=== PATIENT | male | born 1995 | race Caucasian/White ===

== ENCOUNTER 2019-07-29 13:40 | Emergency (ER) | payer SELFPAY ==
--- NOTE | 2019-07-29 15:03 | EDM.PDOC ---
ED HPI GENERAL MEDICAL PROBLEM - General Chief Complaint: Respiratory Problem Stated Complaint: COUGH/CHEST CONGESTION Time Seen by Provider: 07/29/19 15:03 Source of Information: Reports: Patient History Limitations: Reports: No Limitations - History of Present Illness INITIAL COMMENTS - FREE TEXT/NARRATIVE: HISTORY AND PHYSICAL: History of present illness: Patient is a 23-year-old male presents the ED with concern of cough x5 days. Patient states that he has a cough that is worse at night and states he has a burning sensation in his chest with coughing. He reports body aches and chills and subjective fevers. He states he has had some nonbloody diarrhea the past couple of days. He denies chest pain, shortness of breath, nausea, vomiting, abdominal pain. He denies significant past medical history. He is taking OTC medications without relief of symptoms. Review of systems: As per history of present illness and below otherwise all systems reviewed and negative. Past medical history: As per history of present illness and as reviewed below otherwise noncontributory. Surgical history: As per history of present illness and as reviewed below otherwise noncontributory. Social history: No reported history of drug or alcohol abuse. Family history: As per history of present illness and as reviewed below otherwise noncontributory. Physical exam: General: Patient sitting comfortably in no acute distress and nontoxic appearing HEENT: Atraumatic, normocephalic, pupils reactive, negative for conjunctival pallor or scleral icterus, mucous membranes moist, throat clear, neck supple, nontender, trachea midline. No meningeal signs. Lungs: Clear to auscultation, breath sounds equal bilaterally, chest nontender. Heart: S1S2, regular, negative for clicks, rubs, or overt murmur. Abdomen: Soft, nondistended, nontender. Negative for masses or hepatosplenomegaly. Negative for costovertebral tenderness. No rigidity, rebound , guarding. Pelvis: Stable nontender. Genitourinary: Deferred. Rectal: Deferred. Extremities: Atraumatic, negative for cords or calf pain. Neurovascular unremarkable. Neuro: Awake, alert, oriented. Cranial nerves II through XII unremarkable. Cerebellum unremarkable. Motor and sensory unremarkable throughout. Exam nonfocal. Notes: Diagnostics: Influenza Therapeutics: none Prescriptions: none Impression: Influenza B Plan: 1. Drink plenty of fluids and alternate tylenol and motrin as discussed. 2. Follow up with primary care provider 3. Return to ED as needed as discussed Definitive disposition and diagnosis as appropriate pending reevaluation and review of above. - Related Data Allergies Allergy/AdvReac Type Severity Reaction Status Date / Time No Known Allergies Allergy Verified 07/29/19 14:57 Home Meds: Home Meds . [No Known Home Meds] 07/29/19 [History] ED ROS GENERAL - Review of Systems Review Of Systems: Comprehensive ROS is negative, except as noted in HPI. ED EXAM, GENERAL - Physical Exam Exam: See Below (see dictation) Course - Vital Signs Last Recorded V/S: Last Vital Signs Temp 98.5 F 07/29/19 14:57 Pulse 99 07/29/19 14:57 Resp 18 07/29/19 14:57 BP 114/75 07/29/19 14:57 Pulse Ox 98 07/29/19 14:57 Departure - Departure Time of Disposition: 15:44 Disposition: Home, Self-Care 01 Condition: Good Clinical Impression: Influenza B - Discharge Information Referrals: PCP,None [Primary Care Provider] - Forms: ED Department Discharge Additional Instructions: The following information is given to patients seen in the emergency department who are being discharged to home. This information is to outline your options for follow-up care. We provide all patients seen in our emergency department with a follow-up referral. The need for follow-up, as well as the timing and circumstances, are variable depending upon the specifics of your emergency department visit. If you don't have a primary care physician on staff, we will provide you with a referral. We always advise you to contact your personal physician following an emergency department visit to inform them of the circumstance of the visit and for follow-up with them and/or the need for any referrals to a consulting specialist. The emergency department will also refer you to a specialist when appropriate. This referral assures that you have the opportunity for follow-up care with a specialist. All of these measure are taken in an effort to provide you with optimal care, which includes your follow-up. Under all circumstances we always encourage you to contact your private physician who remains a resource for coordinating your care. When calling for follow-up care, please make the office aware that this follow-up is from your recent emergency room visit. If for any reason you are refused follow-up, please contact the [facility] Emergency Department at and asked to speak to the emergency department charge nurse. [facility] [address] [place] [address] [address] 1. Drink plenty of fluids and alternate tylenol and motrin as discussed. 2. Follow up with primary care provider 3. Return to ED as needed as discussed Sepsis Event Note - Focused Exam Vital Signs: Vital Signs Temp Pulse Resp BP Pulse Ox 07/29/19 14:57 98.5 F 99 18 114/75 98 Date Exam was Performed: 07/29/19 Time Exam was Performed: 15:46
== END 2019-07-29 16:00 | disposition home or self-care (01) ==
LOC: MW.ED 13:40
DX: J10.1 Influenza due to other identified influenza virus with other respiratory manifestations (principal)
CPT/HCPCS: 87804; 99282; 99283